=== PATIENT | male | born 1985 | race Caucasian/White ===

== ENCOUNTER 2020-05-18 13:01 | Emergency (ER) | payer MEDICAID ==
[~2020-05-18] VITALS: Ht 177.8 cm; Wt 64.5 kg
[~2020-05-18 13:01] MED LIST: IBUP-1984 PO
[2020-05-18 13:18] VITALS: BP 127/107
[2020-05-18] MEDS ORDERED: TETanus/Pertussis (Acell)/Diphther VAC/PF (Tdap-Adult) 0.5ml syringe IMVAC ONE (13:35)
[2020-05-18] MEDS ORDERED: LIDOcaine 1% W/epiNEPHrine 1:200,000 10ml vial IJ ONE (13:35)
[2020-05-18] MEDS ORDERED: SULF1TAB49 PO (13:56)
== END 2020-05-18 14:31 | disposition home or self-care (01) ==
LOC: ER 13:02
DX: L02.414 Cutaneous abscess of left upper limb (principal); G89.29 Other chronic pain; F41.9 Anxiety disorder, unspecified; Z79.899 Other long term (current) drug therapy
CPT/HCPCS: 10060; 90471; 90715; 99283

== ENCOUNTER 2020-06-28 00:36 | Emergency (ER) | payer MEDICAID ==
[~2020-06-28] VITALS: Ht 177.8 cm; Wt 68.2 kg
[2020-06-28 00:41] VITALS: BP 123/79
[2020-06-28] MEDS ORDERED: CEPH250T PO (01:26)
== END 2020-06-28 01:39 | disposition home or self-care (01) ==
LOC: ER 00:36
DX: M79.642 Pain in left hand (principal); M79.89 Other specified soft tissue disorders; G89.29 Other chronic pain; F41.9 Anxiety disorder, unspecified; F32.9 Major depressive disorder, single episode, unspecified; F11.90 Opioid use, unspecified, uncomplicated; Z79.2 Long term (current) use of antibiotics; Z79.899 Other long term (current) drug therapy
CPT/HCPCS: 99283

== ENCOUNTER 2020-11-30 22:22 | Emergency (ER) | payer MEDICAID ==
[~2020-11-30] VITALS: Ht 177.8 cm; Wt 68.2 kg
[~2020-11-30 22:22] MED LIST changes: +NO HOME MEDS
[2020-11-30 22:41] VITALS: BP 129/94
[2020-12-01] MEDS ORDERED: LIDOcaine 1% W/epiNEPHrine 1:200,000 10ml vial IJ ONE (00:35)
[2020-12-01] MEDS ORDERED: DOXY100C43 PO (00:36)
== END 2020-12-01 01:04 | disposition home or self-care (01) ==
LOC: ER 22:23
DX: L03.113 Cellulitis of right upper limb (principal); G89.29 Other chronic pain; F11.90 Opioid use, unspecified, uncomplicated; Z79.2 Long term (current) use of antibiotics; Z79.899 Other long term (current) drug therapy
CPT/HCPCS: 10060; 99283